=== PATIENT | female | born 1955 | race Caucasian/White ===

== ENCOUNTER 2021-06-22 10:53 | Inpatient (IN) | payer BC ==
[2021-06-22] MEDS ORDERED: Polyethylene Glycol 3350 Powder 17 GM Packet PO PRN (11:07)
[2021-06-22] MEDS ORDERED: Sodium Chloride 0.9% 10 ML Syringe FLUSH PRN (11:07)
[2021-06-22] MEDS ORDERED: Furosemide 40 MG/4 ML VIAL IVPUSH ONE (11:15)
[2021-06-22] MEDS ORDERED: Ondansetron 4 MG Tab.DIS PO PRN (12:00)
[2021-06-22] MEDS ORDERED: Acetaminophen 325 MG Tab PO PRN (12:00)
[2021-06-22 12:28] LABS: CHLORIDE,CL 88 mmol/L (98-107)
[2021-06-22 12:30] LABS: ANION GAP 7.9 meq/L (7-15); SODIUM,NA 120 mmol/L (136-145)
[2021-06-22] MEDS: Enoxaparin 40 MG/0.4 ML Syringe SUBCUT SCH (12:39)
[2021-06-22] MEDS: Nicotine 14 MG/24 Hr Patch TRDERM SCH (12:40)
[2021-06-22] MEDS: Magnesium Oxide 400 MG Tab PO SCH (14:46)
[2021-06-22 16:13] LABS: CHLORIDE,CL 90 mmol/L (98-107); SODIUM,NA 126 mmol/L (136-145)
[2021-06-22 16:15] LABS: ANION GAP 7.6 meq/L (7-15)
[2021-06-22] MEDS ORDERED: Ibuprofen 400 MG Tab PO PRN (19:37)
[2021-06-22 20:05] LABS: ANION GAP 8.8 meq/L (7-15); CHLORIDE,CL 95 mmol/L (98-107); SODIUM,NA 129 mmol/L (136-145)
[2021-06-22] MEDS: OXcarbazepine 300 MG Tab PO SCH (20:48)
[2021-06-22] MEDS ORDERED: Sodium Chloride 0.9% 1,000 ML IV SCH (21:30)
[2021-06-23 06:40] LABS: CHLORIDE,CL 96 mmol/L (98-107); SODIUM,NA 129 mmol/L (136-145)
[2021-06-23 06:44] LABS: ANION GAP 9.5 meq/L (7-15)
[2021-06-23] MEDS: Magnesium Oxide 400 MG Tab PO SCH (07:31)
[2021-06-23] MEDS: Nicotine 14 MG/24 Hr Patch TRDERM SCH (07:31)
[2021-06-23] MEDS: Enoxaparin 40 MG/0.4 ML Syringe SUBCUT SCH (07:31)
[2021-06-23 07:32] VITALS: BP 146/83; PULSE 73
[2021-06-23] MEDS: OXcarbazepine 300 MG Tab PO SCH (07:32)
[2021-06-23] MEDS ORDERED: OXcarbazepine 300 MG Tab PO SCH (08:00)
[2021-06-23] MEDS ORDERED: Remove Patch NICOTINE PATCH TRDERM SCH (08:00)
[2021-06-23] MEDS ORDERED: Aspirin 81 MG Tab.Chew PO SCH (08:00)
[2021-06-23] MEDS ORDERED: Metoprolol Succinate 25 MG Tab.ER PO SCH (08:00)
--- NOTE | 2021-06-23 10:00 | PCM.DCSUM1 ---
<Shelley Mitchell - Last Filed: 06/23/21 10:05> Discharge Summary - Hospital Course Free Text/Narrative:: Patient is a 65 year old female, that appears older than stated age. She was initially seen in the clinic for a preoperative clearance exam on Monday, June 21, 2021, to have bunion surgery on the left foot with Dr. Yusuf. She was found to have severe hyponatremia and was then assessed by Dr. Lacey Weinberg, Internal Medicine. Subsequently she was hospitalized to correct the hypon atremia. Patient did admit to being dizzy and nauseated for the past few weeks. Onset was gradual and worsening. PMH significant for chronic combined systolic and diastolic heart failure. She was not weighing herself daily at home but did have a 6 pound weight gain over 1.5 months according to clinic scale. No encephalopathy noted, no report of falls at home. No hyponatremia in the past. She was given Lasix 40 mg IV x 1 dose and Normal Saline IV at 75 ml per hour during the stay. Her sodium corrected up to 129 this morning. Reviewed patient with Dr. Weinberg and she is okay to discharge patient to home and proceed with surgery tomorrow if Dr. Yusuf is comfortable. HPI Initial Comments: As above. Diagnosis: Stroke: No - Discharge Data Discharge Date: 06/23/21 Discharge Disposition: Home, Self-Care 01 Condition: Good - Referral to Home Health Primary Care Physician: Mac Fenton PA-C - Discharge Diagnosis/Problem(s) (1) Hyponatremia SNOMED Code(s): 35333567 ICD Code: E87.1 - HYPO-OSMOLALITY AND HYPONATREMIA Status: Acute Priority: High Onset Date: ~06/21/21 Problem Details: Sodium corrected to 129 during hospitalization. Instructed to monitor home weight daily and contact clinic if up >3 pounds. Provided printed information on a heart healthy diet. (2) Heart failure SNOMED Code(s): 77320595 ICD Code: I50.9 - HEART FAILURE, UNSPECIFIED Status: Acute Priority: High Problem Details: Monitor weight as above. May need some Lasix if weight >3 pound increase. Qualifiers: Heart failure type: combined systolic and diastolic (3) Nicotine dependence SNOMED Code(s): 51118073 ICD Code: F17.200 - NICOTINE DEPENDENCE, UNSPECIFIED, UNCOMPLICATED Status: Acute Qualifiers: Nicotine product type: cigarettes - Discharge Plan Home Medications: Home Meds Aspirin [Vazalore] 81 mg PO DAILY 06/22/21 [History] Ibuprofen [Advil] 400 mg PO Q6H PRN 06/22/21 [History] Metoprolol Succinate 25 mg PO DAILY 06/22/21 [History] OXcarbazepine [Oxcarbazepine] 300 mg PO BID 06/22/21 [History] lisinopriL [Lisinopril] 5 mg PO DAILY 06/22/21 [History] Patient Handouts: Furosemide Injection, Hyponatremia, [id number], Heart- Healthy Eating Plan, [id number], Form - Daily Weight Record - General Info Date of Service: 06/23/21 Functional Status: Reports: Pain Controlled - Review of Systems General: Reports: No Symptoms HEENT: Reports: No Symptoms Pulmonary: Reports: No Symptoms Cardiovascular: Reports: No Symptoms Gastrointestinal: Reports: No Symptoms Genitourinary: Reports: No Symptoms Musculoskeletal: Reports: No Symptoms Skin: Reports: No Symptoms Neurological: Reports: No Symptoms Psychiatric: Reports: No Symptoms - Patient Data Vitals - Most Recent: Last Vital Signs Temp 98.3 F 06/23/21 08:00 Pulse 73 06/23/21 08:00 Resp 16 06/23/21 08:00 BP 146/83 H 06/23/21 08:00 Pulse Ox 97 06/23/21 08:00 Weight - Most Recent: 50.893 kg I&O - Last 24 hours: Intake & Output 06/22/21 06/23/21 06/23/21 22:59 06:59 14:59 Intake Total 520 420 720 Output Total 450 575 Balance 70 -155 720 Lab Results - Last 24 hrs: Laboratory Results - last 24 hr 06/22/21 06/22/21 06/22/21 Range/Units 11:54 11:54 15:55 WBC 4.5 (4.0-10.2) K/uL RBC 4.65 (3.77-5.09) M/uL Hgb 14.6 (11.7-15.5) g/dL Hct 40.0 (34.0-46.0) % MCV 86.0 (84.0-98.0) fL MCH 31.4 (28.2-33.3) pg MCHC 36.5 H (31.7-36.0) g/dL RDW 13.2 (11.2-14.1) % Plt Count 164 (150-350) K/uL Neut % (Auto) 50.2 (45.0-80.0) % Lymph % (Auto) 35.5 (10.0-50.0) % Preston % (Auto) 11.4 (2.0-14.0) % Eos % (Auto) 2.7 (0.0-5.0) % Baso % (Auto) 0.2 (0.0-2.0) % Neut # (Auto) 2.25 (1.40-7.00) K/uL Lymph # (Auto) 1.59 (0.50-3.50) K/uL Preston # (Auto) 0.51 (0.00-1.00) K/uL Eos # (Auto) 0.12 (0.00-0.50) K/uL Baso # (Auto) 0.01 (0.00-0.20) K/uL Sodium 120 L* 126 L (136-145) mmol/L Potassium 4.3 3.3 L (3.5-5.1) mmol/L Chloride 88 L 90 L (98-107) mmol/L Carbon Dioxide 28.4 31.7 (21.0-32.0) mmol/L Anion Gap 7.9 7.6 (7-15) meq/L BUN 10 14 (7-18) mg/dL Creatinine 0.70 0.75 (0.51-1.17) mg/dL Est Cr Clr Drug Dosing 61.27 57.18 mL/min Estimated GFR (MDRD) > 60 > 60 mL/min Glucose 88 116 H (70-99) mg/dL Calcium 8.0 L 8.1 L (8.5-10.1) mg/dL Magnesium 1.7 L (1.8-2.4) mg/dL Total Bilirubin 0.5 (0.2-1.0) mg/dL AST 24 (15-37) U/L ALT 27 (12-78) U/L Alkaline Phosphatase 78 (46-116) IU/L Total Protein 6.9 (6.4-8.2) g/dL Albumin 3.7 (3.4-5.0) g/dL 06/22/21 06/23/21 Range/Units 19:41 06:09 WBC (4.0-10.2) K/uL RBC (3.77-5.09) M/uL Hgb (11.7-15.5) g/dL Hct (34.0-46.0) % MCV (84.0-98.0) fL MCH (28.2-33.3) pg MCHC (31.7-36.0) g/dL RDW (11.2-14.1) % Plt Count (150-350) K/uL Neut % (Auto) (45.0-80.0) % Lymph % (Auto) (10.0-50.0) % Preston % (Auto) (2.0-14.0) % Eos % (Auto) (0.0-5.0) % Baso % (Auto) (0.0-2.0) % Neut # (Auto) (1.40-7.00) K/uL Lymph # (Auto) (0.50-3.50) K/uL Preston # (Auto) (0.00-1.00) K/uL Eos # (Auto) (0.00-0.50) K/uL Baso # (Auto) (0.00-0.20) K/uL Sodium 129 L 129 L (136-145) mmol/L Potassium 3.7 4.0 (3.5-5.1) mmol/L Chloride 95 L 96 L (98-107) mmol/L Carbon Dioxide 28.9 27.5 (21.0-32.0) mmol/L Anion Gap 8.8 9.5 (7-15) meq/L BUN 16 17 (7-18) mg/dL Creatinine 0.85 0.76 (0.51-1.17) mg/dL Est Cr Clr Drug Dosing 50.46 56.43 mL/min Estimated GFR (MDRD) > 60 > 60 mL/min Glucose 104 H 116 H (70-99) mg/dL Calcium 8.0 L 7.8 L (8.5-10.1) mg/dL Magnesium (1.8-2.4) mg/dL Total Bilirubin (0.2-1.0) mg/dL AST (15-37) U/L ALT (12-78) U/L Alkaline Phosphatase (46-116) IU/L Total Protein (6.4-8.2) g/dL Albumin (3.4-5.0) g/dL Med Orders - Current: Current Medications Acetaminophen (Acetaminophen 325 Mg Tab) 650 mg PO Q4H PRN PRN Reason: Pain (Mild 1-3)/fever Last Admin: 06/22/21 23:42 Dose: 650 mg Documented by: Aspirin (Aspirin 81 Mg Tab.Chew) 81 mg PO DAILY [facility] Last Admin: 06/23/21 07:31 Dose: 81 mg Documented by: Enoxaparin Sodium (Enoxaparin 40 Mg/0.4 Ml Syringe) 40 mg SUBCUT DAILY [facility] Last Admin: 06/23/21 07:31 Dose: 40 mg Documented by: Sodium Chloride (Normal Saline) 1,000 mls @ 75 mls/hr IV ASDIRECTED [facility] Last Admin: 06/22/21 21:34 Dose: 75 mls/hr Documented by: Ibuprofen (Ibuprofen 400 Mg Tab) 400 mg PO Q6H PRN PRN Reason: Pain Magnesium Oxide (Magnesium Oxide 400 Mg Tab) 400 mg PO DAILY [facility] Last Admin: 06/23/21 07:31 Dose: 400 mg Documented by: Metoprolol Succinate (Metoprolol Succinate 25 Mg Tab.Er) 25 mg PO DAILY [facility] Last Admin: 06/23/21 07:31 Dose: 25 mg Documented by: Miscellaneous Information (Remove Patch Nicotine Patch) 1 ea TRDERM DAILY [facility] Last Admin: 06/23/21 07:32 Dose: 1 ea Documented by: Nicotine (Nicotine 14 Mg/24 Hr Patch) 14 mg TRDERM DAILY [facility] Last Admin: 06/23/21 07:31 Dose: 14 mg Documented by: Ondansetron HCl (Ondansetron 4 Mg Tab.Dis) 8 mg PO Q6H PRN PRN Reason: Nausea/Vomiting Oxcarbazepine (Oxcarbazepine 300 Mg Tab) 300 mg PO BID [facility] Last Admin: 06/23/21 07:32 Dose: 300 mg Documented by: Polyethylene Glycol (Polyethylene Glycol 3350 Powder 17 Gm Packet) 17 gm PO DAILY PRN PRN Reason: Constipation Sodium Chloride (Sodium Chloride 0.9% 10 Ml Syringe) 10 ml FLUSH ASDIRECTED PRN PRN Reason: Keep Vein Open Discontinued Medications Furosemide (Furosemide 40 Mg/4 Ml Vial) 40 mg IVPUSH NOW ONE Stop: 06/22/21 11:16 Last Admin: 06/22/21 12:38 Dose: 40 mg Documented by: Oxcarbazepine (Oxcarbazepine 300 Mg Tab) 300 mg PO BID [place] - Exam General: Reports: Alert, Oriented Lungs: Reports: Clear to Auscultation, Normal Respiratory Effort Cardiovascular: Reports: Regular Rate, Regular Rhythm GI/Abdominal Exam: Normal Bowel Sounds, Soft, Non-Tender, No Organomegaly, No Distention, No Abnormal Bruit, No Mass, Pelvis Stable Extremities: Normal Inspection, Normal Range of Motion, Non-Tender, No Pedal Edema, Normal Capillary Refill Skin: Reports: Warm, Dry, Intact Neurological: Reports: No New Focal Deficit Psy/Mental Status: Reports: Alert, Normal Affect, Normal Mood Physical Findings Comments:: Plan: I will contact Dr. Yusuf's office to let him know about hospitalization. Dr. Weinberg approves her to have procedure tomorrow if he is comfortable with the situation. Her Na is 129 this morning. She has been on Levenox during the hospitalization with the last dose this morning. Recommend follow-up in a few weeks at the clinic. <Mary Jane Almazan H - Last Filed: 07/02/21 19:30> Discharge Summary - Referral to Home Health Primary Care Physician: Mac Fenton PA-C - Discharge Diagnosis/Problem(s) (1) Heart failure SNOMED Code(s): 49260607 ICD Code: I50.9 - HEART FAILURE, UNSPECIFIED Status: Acute Priority: High Problem Details: Monitor weight as above. May need some Lasix if weight >3 pound increase. Qualifiers: Heart failure type: combined systolic and diastolic (2) Hyponatremia SNOMED Code(s): 70182172 ICD Code: E87.1 - HYPO-OSMOLALITY AND HYPONATREMIA Status: Acute Priority: High Onset Date: ~06/21/21 Problem Details: Sodium corrected to 129 during hospitalization. Instructed to monitor home weight daily and contact clinic if up >3 pounds. Provided printed information on a heart healthy diet. (3) Nicotine dependence SNOMED Code(s): 47850318 ICD Code: F17.200 - NICOTINE DEPENDENCE, UNSPECIFIED, UNCOMPLICATED Status: Acute Qualifiers: Nicotine product type: cigarettes - Discharge Summary/Plan Comment DC Time >30 min.: No Total # of Minutes for Discharge Time: 30 - Patient Data Vitals - Most Recent: Last Vital Signs Temp 36.8 C 06/23/21 08:00 Pulse 73 06/23/21 08:00 Resp 16 06/23/21 08:00 BP 146/83 H 06/23/21 08:00 Pulse Ox 97 06/23/21 08:00 Med Orders - Current: Current Medications Discontinued Medications Acetaminophen (Acetaminophen 325 Mg Tab) 650 mg PO Q4H PRN PRN Reason: Pain (Mild 1-3)/fever Last Admin: 06/22/21 23:42 Dose: 650 mg Documented by: Aspirin (Aspirin 81 Mg Tab.Chew) 81 mg PO DAILY [facility] Last Admin: 06/23/21 07:31 Dose: 81 mg Documented by: Enoxaparin Sodium (Enoxaparin 40 Mg/0.4 Ml Syringe) 40 mg SUBCUT DAILY [facility] Last Admin: 06/23/21 07:31 Dose: 40 mg Documented by: Furosemide (Furosemide 40 Mg/4 Ml Vial) 40 mg IVPUSH NOW ONE Stop: 06/22/21 11:16 Last Admin: 06/22/21 12:38 Dose: 40 mg Documented by: Sodium Chloride (Normal Saline) 1,000 mls @ 75 mls/hr IV ASDIRECTED [facility] Last Admin: 06/22/21 21:34 Dose: 75 mls/hr Documented by: Ibuprofen (Ibuprofen 400 Mg Tab) 400 mg PO Q6H PRN PRN Reason: Pain Magnesium Oxide (Magnesium Oxide 400 Mg Tab) 400 mg PO DAILY [facility] Last Admin: 06/23/21 07:31 Dose: 400 mg Documented by: Metoprolol Succinate (Metoprolol Succinate 25 Mg Tab.Er) 25 mg PO DAILY [facility] Last Admin: 06/23/21 07:31 Dose: 25 mg Documented by: Miscellaneous Information (Remove Patch Nicotine Patch) 1 ea TRDERM DAILY [facility] Last Admin: 06/23/21 07:32 Dose: 1 ea Documented by: Nicotine (Nicotine 14 Mg/24 Hr Patch) 14 mg TRDERM DAILY [facility] Last Admin: 06/23/21 07:31 Dose: 14 mg Documented by: Ondansetron HCl (Ondansetron 4 Mg Tab.Dis) 8 mg PO Q6H PRN PRN Reason: Nausea/Vomiting Oxcarbazepine (Oxcarbazepine 300 Mg Tab) 300 mg PO BID [facility] Oxcarbazepine (Oxcarbazepine 300 Mg Tab) 300 mg PO BID [facility] Last Admin: 06/23/21 07:32 Dose: 300 mg Documented by: Polyethylene Glycol (Polyethylene Glycol 3350 Powder 17 Gm Packet) 17 gm PO DAILY PRN PRN Reason: Constipation Sodium Chloride (Sodium Chloride 0.9% 10 Ml Syringe) 10 ml FLUSH ASDIRECTED PRN PRN Reason: Keep Vein Open
--- NOTE | 2021-06-25 11:12 | PCM.HP.2 ---
H&P History of Present Illness - General Date of Service: 06/22/21 Admit Problem/Dx: Admission Diagnosis/Problem Admission Diagnosis/Problem Severe symptomatic Hyponatremia Source of Information: Patient History Limitations: Reports: No Limitations - History of Present Illness Initial Comments - Free Text/Narative: This is a 65-year-old female patient with a history of systolic and diastolic congestive heart failure. She has noticed over the past 2 weeks that she has started to have dizziness and dizzy spells. She has a history of hyponatremia in the past. She is scheduled for cataract surgery this coming June 24. She had presented to the clinic for preoperative exam. At that time she was found to have a sodium low at 120. According to clinic records the patient has gained 6 pounds in the last 6 weeks. Patient does not weigh herself at home. She has noticed some swelling to her feet and ankles. She denies any arrhythmias. She was seen today in follow-up regarding her low sodium. Onset of Symptoms: Reports: Gradual Symptom Onset Date: 06/09/21 Improves with: Reports: Rest Worsens with: Reports: Movement - Related Data Allergies/Adverse Reactions: Allergies Allergy/AdvReac Type Severity Reaction Status Date / Time ciprofloxacin [From Cipro] Allergy Rash Verified 06/22/21 12:37 nylon Allergy Rash Verified 06/22/21 12:37 Penicillins Allergy Other Verified 06/22/21 12:37 Home Medications: Home Meds Aspirin [Vazalore] 81 mg PO DAILY 06/22/21 [History] Ibuprofen [Advil] 400 mg PO Q6H PRN 06/22/21 [History] Metoprolol Succinate 25 mg PO DAILY 06/22/21 [History] OXcarbazepine [Oxcarbazepine] 300 mg PO BID 06/22/21 [History] lisinopriL [Lisinopril] 5 mg PO DAILY 06/22/21 [History] Past Medical History HEENT History: Reports: Hard of Hearing, Impaired Vision Gastrointestinal History: Reports: None [employer] History: Reports: Musculoskeletal History: Reports: Arthritis - Infectious Disease History Infectious Disease History: Reports: Chicken Pox, Influenza - Past Surgical History HEENT Surgical History: Reports: None Cardiovascular Surgical History: Reports: None GI Surgical History: Reports: Colonoscopy Musculoskeletal Surgical History: Reports: Arthroscopic Knee Other Musculoskeletal Surgeries/Procedures:: athoscopic right and left knee; partial right knee replacement; left elbow surgery H&P Review of Systems - Review of Systems: Review Of Systems: See Below Free Text/Narrative: Patient complains of dizziness for the past 2 weeks, came into the clinic for preoperative exam for cataract surgery. General: Reports: No Symptoms HEENT: Reports: No Symptoms Pulmonary: Reports: No Symptoms Cardiovascular: Reports: No Symptoms Gastrointestinal: Reports: No Symptoms Genitourinary: Reports: No Symptoms Musculoskeletal: Reports: Joint Swelling (Mild feet and ankle swelling) Skin: Reports: No Symptoms Psychiatric: Reports: No Symptoms Neurological: Reports: Dizziness Hematologic/Lymphatic: Reports: No Symptoms Immunologic: Reports: No Symptoms Exam - Exam Exam: See Below - Vital Signs Vital Signs: Last Vital Signs Temp 98.3 F 06/23/21 08:00 Pulse 73 06/23/21 08:00 Resp 16 06/23/21 08:00 BP 146/83 H 06/23/21 08:00 Pulse Ox 97 06/23/21 08:00 Weight: 112 lb 3.2 oz - Exam Quality Assessment: DVT Prophylaxis General: Alert, Oriented, Cooperative HEENT: Hearing Intact Neck: Supple, Trachea Midline Lungs: Clear to Auscultation Cardiovascular: Regular Rate, Regular Rhythm GI/Abdominal Exam: Normal Bowel Sounds, Soft, Non-Tender (Female) Exam: Deferred Extremities: Normal Range of Motion Skin: Warm, Dry, Intact Neurological: Cranial Nerves Intact, Normal Gait Psychiatric: Alert, Normal Affect - Patient Data Result Diagrams: 06/22/21 11:54 06/23/21 06:09 Sepsis Event Note - Evaluation Sepsis Screening Result: No Definite Risk Problem List Initiated/Reviewed/Updated: Yes Assessment/Plan Comment:: Will admit the patient to the hospital on fluid restriction of 1.2 L per 24- hour. Initial lab work will be drawn of serum osmole, CBC, CMP and urine osmole. Every 4 hour basic metabolic panel to monitor sodium. 40 mg Lasix was given IV upon admission. Weights upon admission and daily. We need to monitor patient's sodium level every 4 hours. See if he can raise it up to 128 and she can be discharged. When he raises it slowly. She has hyperosmolar hyponatremia exacerbated by her systolic and diastolic acute on chronic congestive heart failure. - Mortality Measure Prognosis:: Good
== END 2021-06-23 09:55 | disposition home or self-care (01) | DRG 426 ==
LOC: LL.MS 11:03
PROVIDERS: ADMIT Physician Assistant; ATTEND Physician Assistant
DX: E87.1 Hypo-osmolality and hyponatremia (principal); F17.210 Nicotine dependence, cigarettes, uncomplicated; I50.42 Chronic combined systolic (congestive) and diastolic (congestive) heart failure
CPT/HCPCS: 36415; 80048; 80053; 83735; 83930; 83935; 84300; 85025; A9270-GY; J1650; J1940; J7030

== ENCOUNTER 2023-01-19 09:46 | Day surgery (SDC) | payer MEDICARE, BC ==
[~2023-01-19 09:46] MED LIST: Midazolam 1 MG/ML 2 ML SDV ONE; Propofol 200 MG/20 ML SDV ONE
[2023-01-19] MEDS ORDERED: Sodium Chloride 0.9% 10 ML Syringe FLUSH PRN (10:00)
[2023-01-19] MEDS ORDERED: Lactated Ringers 1,000 ML IV SCH (10:00)
== END 2023-01-19 12:47 | disposition home or self-care (01) ==
LOC: LL.SDS 09:46
PROVIDERS: ATTEND Surgery
DX: K21.00 Gastro-esophageal reflux disease with esophagitis, without bleeding (principal); K22.89 Other specified disease of esophagus; M19.90 Unspecified osteoarthritis, unspecified site; I11.0 Hypertensive heart disease with heart failure; I50.42 Chronic combined systolic (congestive) and diastolic (congestive) heart failure; E04.9 Nontoxic goiter, unspecified; E78.00 Pure hypercholesterolemia, unspecified; F17.210 Nicotine dependence, cigarettes, uncomplicated; Z88.0 Allergy status to penicillin; Z88.5 Allergy status to narcotic agent; Z88.8 Allergy status to other drugs, medicaments and biological substances; Z79.899 Other long term (current) drug therapy
CPT/HCPCS: 00731; J2250; J2704; J7120

== ENCOUNTER 2023-02-19 16:40 | Emergency (ER) | payer MEDICARE, BC ==
[2023-02-19] MEDS ORDERED: Sodium Chloride 0.9% 1,000 ML IV ONE (17:35)
[2023-02-19] MEDS ORDERED: Sodium Chloride 0.9% 10 ML Syringe FLUSH PRN (17:35)
[2023-02-19 17:44] LABS: CHLORIDE,CL 93 mmol/L (98-107); SODIUM,NA 129 mmol/L (136-145)
[2023-02-19 17:45] LABS: ANION GAP 11.4 meq/L (7-15); ESTIMATED GFR 71 mL/min (>=60)
[2023-02-19] MEDS ORDERED: Acetaminophen 500 MG Tab PO ONE (18:28)
[2023-02-19] MEDS ORDERED: Take Home: metroNIDAZOLE 500 MG Tab, 6 Tab Pack PO ONE (18:29)
[2023-02-19] MEDS ORDERED: Take Home: Levofloxacin 500 MG Tab, 3 Tab Pack PO ONE (18:30)
== END 2023-02-19 19:40 | disposition home or self-care (01) ==
LOC: LL.ED 16:40
DX: K11.21 Acute sialoadenitis (principal); E87.1 Hypo-osmolality and hyponatremia; I11.0 Hypertensive heart disease with heart failure; I50.9 Heart failure, unspecified; M13.80 Other specified arthritis, unspecified site; Z88.0 Allergy status to penicillin; Z88.8 Allergy status to other drugs, medicaments and biological substances; Z88.1 Allergy status to other antibiotic agents; Z88.5 Allergy status to narcotic agent; Z79.899 Other long term (current) drug therapy; Z79.02 Long term (current) use of antithrombotics/antiplatelets
CPT/HCPCS: 36415; 80053; 81001; 85025; 96360; 99283-25; 99284; A9270-GY; J7030

== ENCOUNTER 2023-04-19 09:25 | Emergency (ER) | payer MEDICARE, BC ==
[2023-04-19] MEDS ORDERED: Sodium Chloride 0.9% 10 ML Syringe FLUSH PRN (09:57)
[2023-04-19 09:58] LABS: BASOPHILS ABSOLUTE AUTO 0.01 K/uL (0.00-0.20); BASOPHILS PERCENT AUTO 0.1 % (0.0-2.0); EOSINOPHILS ABSOLUTE AUTO 0.23 K/uL (0.00-0.50); EOSINOPHILS PERCENT AUTO 3.1 % (0.0-5.0); HEMATOCRIT 37.5 % (34.0-46.0); HEMOGLOBIN 12.8 g/dL (11.7-15.5); LYMPHOCYTES ABSOLUTE AUTO 1.18 K/uL (0.50-3.50); LYMPHOCYTES PERCENT AUTO 15.7 % (10.0-50.0); MEAN CORPUSCULAR HEMOGLOBIN 30.3 pg (28.2-33.3); MEAN CORPUSCULAR HGB CONC 34.1 g/dL (31.7-36.0); MEAN CORPUSCULAR VOLUME 88.9 fL (84.0-98.0); MONOCYTES ABSOLUTE AUTO 0.62 K/uL (0.00-1.00); MONOCYTES PERCENT AUTO 8.3 % (2.0-14.0); NEUTROPHILS ABSOLUTE AUTO 5.46 K/uL (1.40-7.00); NEUTROPHILS PERCENT AUTO 72.8 % (45.0-80.0); PLATELET COUNT,PLT 186 K/uL (150-350); RED BLOOD CELL COUNT 4.22 M/uL (3.77-5.09); RED CELL DISTRIBUTION WIDTH 15.6 % (11.2-14.1); WHITE BLOOD CELL COUNT,WBC 7.5 K/uL (4.0-10.2)
[2023-04-19 10:15] LABS: ALANINE AMINOTRANSFERASE,ALT 21 U/L (12-78); ALBUMIN 2.8 g/dL (3.4-5.0); ALKALINE PHOSPHATASE 67 IU/L (46-116); ASPARTATE AMNIOTRANSFERASE,AST 18 U/L (15-37); BILIRUBIN TOTAL 0.4 mg/dL (0.2-1.0); BLOOD UREA NITROGEN,BUN 17 mg/dL (7-18); CALCIUM 8.5 mg/dL (8.5-10.1); CHLORIDE,CL 97 mmol/L (98-107); CREATININE 0.84 mg/dL (0.51-1.17); GLUCOSE RANDOM 135 mg/dL (70-99); POTASSIUM,K 4.2 mmol/L (3.5-5.1); PROTEIN TOTAL,TP 7.5 g/dL (6.4-8.2); SODIUM,NA 129 mmol/L (136-145)
[2023-04-19 10:16] LABS: ANION GAP 12.2 meq/L (7-15); ESTIMATED GFR 77 mL/min (>=60)
[2023-04-19 10:24] LABS: PROTHROMBIN TIME 10.1 SEC (9.0-11.1)
[2023-04-19 10:39] LABS: PTT,PARTIAL THROMBOPLSTIN TIME 26.9 SEC (23.6-29.8)
[2023-04-19] MEDS ORDERED: Iopamidol 755 Mg/ML 100 ML Bottle IVPUSH ONE (10:39)
[2023-04-19] MEDS ORDERED: Aspirin 81 MG Tab.Chew PO ONE ×2 (10:50→11:43)
[2023-04-19] MEDS ORDERED: Sodium Chloride 0.9% 1,000 ML IV SCH (12:15)
[2023-04-20] MEDS ORDERED: Aspirin 81 MG Tab.Chew PO ONE (11:43)
== END 2023-04-19 17:50 ==
LOC: LL.ED 09:25
DX: I63.9 Cerebral infarction, unspecified (principal); I10 Essential (primary) hypertension; Z79.82 Long term (current) use of aspirin; Z79.899 Other long term (current) drug therapy; Z88.1 Allergy status to other antibiotic agents; Z88.0 Allergy status to penicillin; Z88.8 Allergy status to other drugs, medicaments and biological substances; Z91.018 Allergy to other foods
CPT/HCPCS: 36415; 70450; 70496; 70498; 80053; 82947; 85025; 85610; 85730; 99284; 99285; A9270-GY; J7030; Q9967

== ENCOUNTER 2023-05-01 21:40 | Emergency (ER) | payer MEDICARE, BC ==
[2023-05-01] MEDS ORDERED: Sodium Chloride 0.9% 10 ML Syringe FLUSH PRN (21:54)
[2023-05-01 21:59] LABS: BASOPHILS ABSOLUTE AUTO 0.05 K/uL (0.00-0.20); BASOPHILS PERCENT AUTO 0.2 % (0.0-2.0); EOSINOPHILS ABSOLUTE AUTO 0.05 K/uL (0.00-0.50); EOSINOPHILS PERCENT AUTO 0.2 % (0.0-5.0); HEMATOCRIT 40.8 % (34.0-46.0); HEMOGLOBIN 14.2 g/dL (11.7-15.5); LYMPHOCYTES ABSOLUTE AUTO 3.58 K/uL (0.50-3.50); LYMPHOCYTES PERCENT AUTO 12.5 % (10.0-50.0); MEAN CORPUSCULAR HEMOGLOBIN 30.9 pg (28.2-33.3); MEAN CORPUSCULAR HGB CONC 34.8 g/dL (31.7-36.0); MEAN CORPUSCULAR VOLUME 88.7 fL (84.0-98.0); MONOCYTES ABSOLUTE AUTO 1.77 K/uL (0.00-1.00); MONOCYTES PERCENT AUTO 6.2 % (2.0-14.0); NEUTROPHILS ABSOLUTE AUTO 23.17 K/uL (1.40-7.00); NEUTROPHILS PERCENT AUTO 80.9 % (45.0-80.0); PLATELET COUNT,PLT 182 K/uL (150-350); RED CELL DISTRIBUTION WIDTH 16.3 % (11.2-14.1); WHITE BLOOD CELL COUNT,WBC 28.6 K/uL (4.0-10.2)
[2023-05-01 22:15] LABS: ALBUMIN 3.3 g/dL (3.4-5.0); ALKALINE PHOSPHATASE 59 IU/L (46-116); ASPARTATE AMNIOTRANSFERASE,AST 15 U/L (15-37); BILIRUBIN TOTAL 0.5 mg/dL (0.2-1.0); BLOOD UREA NITROGEN,BUN 28 mg/dL (7-18); CALCIUM 8.7 mg/dL (8.5-10.1); CARBON DIOXIDE,CO2 24.1 mmol/L (21.0-32.0); CHLORIDE,CL 93 mmol/L (98-107); CREATININE 0.93 mg/dL (0.51-1.17); GLUCOSE RANDOM 183 mg/dL (70-99); PROTEIN TOTAL,TP 7.3 g/dL (6.4-8.2); SODIUM,NA 125 mmol/L (136-145)
[2023-05-01 22:16] LABS: ANION GAP 11.9 meq/L (7-15); ESTIMATED GFR 68 mL/min (>=60)
[2023-05-01] MEDS: Iopamidol 755 Mg/ML 100 ML Bottle IVPUSH ONE (23:29)
== END 2023-05-02 01:30 | disposition home or self-care (01) ==
LOC: LL.ED 21:40
DX: R07.9 Chest pain, unspecified (principal); F41.9 Anxiety disorder, unspecified; I11.0 Hypertensive heart disease with heart failure; E78.00 Pure hypercholesterolemia, unspecified; I50.9 Heart failure, unspecified; Z88.0 Allergy status to penicillin; Z88.1 Allergy status to other antibiotic agents; Z88.5 Allergy status to narcotic agent; Z91.09 Other allergy status, other than to drugs and biological substances; Z79.4 Long term (current) use of insulin
CPT/HCPCS: 36415; 71045; 71275; 80053; 84484; 85025; 85379; 93005; 99285; Q9967

== ENCOUNTER 2023-05-02 08:00 | Emergency (ER) | payer MEDICARE, BC ==
[2023-05-02] MEDS ORDERED: Furosemide 40 MG/4 ML VIAL ONE ×2 (08:14→08:32)
[2023-05-02] MEDS ORDERED: Etomidate 2 MG/ML 10 ML SDV ONE (08:29)
[2023-05-02] MEDS ORDERED: Succinylcholine 200 MG/10 ML MDV ONE (08:30)
[2023-05-02] MEDS ORDERED: fentaNYL 100 MCG/2 ML SDV ONE ×2 (08:31→08:35)
[2023-05-02] MEDS ORDERED: Midazolam 1 MG/ML 2 ML SDV ONE ×3 (08:31→09:10)
[2023-05-02] MEDS ORDERED: Etomidate 2 MG/ML 10 ML SDV IVPUSH ONE (08:43)
[2023-05-02] MEDS ORDERED: Succinylcholine 200 MG/10 ML MDV IVPUSH ONE (08:45)
[2023-05-02 08:50] LABS: O2 DELIVERY DEVICE NASAL CANNULA; PCO2 ARTERIAL 35 mmHG (35-45); PH,ARTERIAL 7.29 (7.35-7.45); PO2 ARTERIAL 101 mmHG (80-105)
[2023-05-02 08:51] LABS: BASE EXCESS ARTERIAL -9 mmol/L (-2-3); BICARBONATE,ARTERIAL 16.6 mmol/L (22-26); O2 SATURATION ARTERIAL 97 % (95-98)
[2023-05-02] MEDS ORDERED: Racepinephrine 2.25% 0.5 ML Neb Soln ONE (09:19)
[2023-05-02] MEDS ORDERED: methylPREDNISolone Sodium Succinate 125 MG/2 ML SDV IVPUSH ONE (09:24)
[2023-05-02] MEDS ORDERED: Sodium Chloride 0.9% 1,000 ML IV ONE ×2 (10:08)
[2023-05-02 10:15] LABS: EOSINOPHILS ABSOLUTE AUTO 0.03 K/uL (0.00-0.50); EOSINOPHILS PERCENT AUTO 0.3 % (0.0-5.0); HEMATOCRIT 45.1 % (34.0-46.0); HEMOGLOBIN 15.1 g/dL (11.7-15.5); LYMPHOCYTES ABSOLUTE AUTO 2.46 K/uL (0.50-3.50); LYMPHOCYTES PERCENT AUTO 28.4 % (10.0-50.0); MEAN CORPUSCULAR HEMOGLOBIN 30.6 pg (28.2-33.3); MEAN CORPUSCULAR HGB CONC 33.5 g/dL (31.7-36.0); MEAN CORPUSCULAR VOLUME 91.3 fL (84.0-98.0); MONOCYTES ABSOLUTE AUTO 0.27 K/uL (0.00-1.00); MONOCYTES PERCENT AUTO 3.1 % (2.0-14.0); NEUTROPHILS PERCENT AUTO 68.2 % (45.0-80.0); PLATELET COUNT,PLT 183 K/uL (150-350); RED BLOOD CELL COUNT 4.94 M/uL (3.77-5.09); RED CELL DISTRIBUTION WIDTH 16.7 % (11.2-14.1); WHITE BLOOD CELL COUNT,WBC 8.7 K/uL (4.0-10.2)
[2023-05-02 10:21] LABS: ALBUMIN 2.8 g/dL (3.4-5.0); ALKALINE PHOSPHATASE 55 IU/L (46-116); ASPARTATE AMNIOTRANSFERASE,AST 18 U/L (15-37); BILIRUBIN TOTAL 1.2 mg/dL (0.2-1.0); BLOOD UREA NITROGEN,BUN 31 mg/dL (7-18); CALCIUM 8.6 mg/dL (8.5-10.1); CARBON DIOXIDE,CO2 19.5 mmol/L (21.0-32.0); CHLORIDE,CL 92 mmol/L (98-107); GLUCOSE RANDOM 281 mg/dL (70-99); POTASSIUM,K 3.5 mmol/L (3.5-5.1); PROTEIN TOTAL,TP 6.5 g/dL (6.4-8.2); SODIUM,NA 127 mmol/L (136-145)
[2023-05-02 10:24] LABS: ESTIMATED GFR 29 mL/min (>=60)
[2023-05-02 10:41] LABS: BILIRUBIN,URINE NEGATIVE (NEGATIVE); COLOR,URINE YELLOW; GLUCOSE,URINE NEGATIVE (NEGATIVE); KETONES,URINE NEGATIVE (NEGATIVE); LEUKOCYTE ESTERASE,URINE NEGATIVE (NEGATIVE); NITRITE,URINE NEGATIVE (NEGATIVE); OCCULT BLOOD,URINE MODERATE (NEGATIVE); PROTEIN,URINE NEGATIVE (NEGATIVE); UROBILINOGEN,URINE 0.2 E.U./dL (0.2-1.0)
[2023-05-02 11:02] LABS: APPEARANCE,URINE SLIGHTLY CLOUDY; BACTERIA,URINE NOT SEEN /HPF (NONE TO FEW); EPITHELIAL CELLS,URINE NOT SEEN /LPF; RBC,URINE 20-30 /HPF; WBC,URINE 0-5 /HPF
[2023-05-02] MEDS ORDERED: fentaNYL 100 MCG/2 ML SDV IVPUSH ONE (12:00)
== END 2023-05-02 10:22 ==
LOC: LL.ED 08:00
DX: J96.90 Respiratory failure, unspecified, unspecified whether with hypoxia or hypercapnia (principal); R57.9 Shock, unspecified; R00.0 Tachycardia, unspecified; I11.0 Hypertensive heart disease with heart failure; I50.9 Heart failure, unspecified; Z88.0 Allergy status to penicillin; Z88.1 Allergy status to other antibiotic agents; Z88.8 Allergy status to other drugs, medicaments and biological substances; Z91.048 Other nonmedicinal substance allergy status; Z79.899 Other long term (current) drug therapy
CPT/HCPCS: 31500; 36415; 36600; 71045; 80053; 81001; 82803; 82947; 85025; 94761; 99285-25; J0330; J1940; J2250; J3010; J3490; J7030